=== PATIENT | male | born 1990 | race African-American/Black ===

== ENCOUNTER 2024-02-04 13:30 | Outpatient (AMB) | payer BC, SELFPAY ==
[2024-02-04 13:49] VITALS: BP 102/54; PULSE 83; TEMP 36.8; O2SAT 99; BMI 21.4
--- NOTE | 2024-02-04 13:49 | MHC.OFFWIV ---
Intake Vital Signs 02/04/24 13:49 Height 5 ft 10 in Weight 149 lb BMI 21.4 BP 102/54 L Blood Pressure Location Lt brachial Position Sitting Pulse 83 Pulse Source Pulse Oximeter Temp 98.3 F Temp Source Oral Pulse Oximetry (%) 99 Oxygen Delivery Method Room Air Intake Visit Reasons: [employer] Back on scalp enlarged Intake Note: Pt is here today c/o lower Rt side of scalp enlarged (no pain, no injury) noticed this morning after having a haircut Patient Tobacco Use Status: Never used Tobacco Allergies No Known Allergies Allergy (Verified 02/04/24 13:49) HPI [employer] Back on scalp enlarged HPI Details Patient had a haircut yesterday and noticed that he has mild swelling/fluctuance at right posterior scalp. No injury, abrasion or laceration No pain or warm No fevers or chill No other complaints and patient feels well. Patient's hair was not long before and he says he would have noticed swelling if it had been there PFSH Social History Patient Tobacco Use Status: Never used Tobacco Review of Systems Const Details: See HPI Physical Exam Vital Signs: Last Vital Signs Temp 98.3 F 02/04/24 13:49 Pulse 83 02/04/24 13:49 BP 102/54 L 02/04/24 13:49 Pulse Ox 99 02/04/24 13:49 Oxygen Delivery Method Room Air 02/04/24 13:49 BMI result Body Mass Index 21.4 Const General: No acute distress Skin Other: Approximately 1.5 cm area of fluctuance at right posterior scalp at level of occiput No erythema warmth or tenderness No lymphadenopathy No lacerations abrasions or other skin lesions. Assessment & Plan Assessment & Plan (1) Superficial swelling of scalp: Code(s): R22.0 - Localized swelling, mass and lump, head Plan: Small area of scalp swelling without evidence of infection. Patient did just have a haircut though I see no abrasions or lacerations. Advised cool compresses. Can sleep slightly inclined today/tomorrow Will send script for cephalexin. He will hold off on taking this unless noting any increased pain, warmth, erythema or drainage. Can call or return to office if not improving. Plan Scal Medications: New cephalexin 500 mg PO Q12H 10 days 20 caps 0RF Coding Level of Care Code Est Pt Level 3 (27042) Diagnoses Superficial swelling of scalp R22.0
== END 2024-02-04 14:06 | disposition home or self-care (01) ==
PROVIDERS: PCP Internal Medicine; Visit Provider Family Medicine
DX: R22.0 Localized swelling, mass and lump, head (principal)
CPT/HCPCS: 99213